=== PATIENT | male | born 1985 | race Caucasian/White ===

== ENCOUNTER 2024-08-05 09:56 | Outpatient (AMB) | payer BC, SELFPAY ==
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
[2024-08-05 10:19] VITALS: BP 120/70; PULSE 66; RESP 14; TEMP 36.8; O2SAT 98; BMI 25.3
--- OUTSIDE RECORDS SUMMARY | 2024-08-05 10:56 | XMS_ITS | Patient Health Record ---
Author Organization Shira , [facility] Address [address], [place] [id number] Care Team Providers Care Web Portal Developer Name Role Phone Negro Waldrop Primary Care Provider Jose Young Unavailable [phone] Reason For Referral No Information Medications Medication SIG (Take, Route, Fr equency, Duration) Notes Start Date End Date Status Adderall 20 MG 1 tab Orally twice a day for 30 days 11/24/2019 Active LaMICtal 200 MG 1 tablet Orally Once a day for 30 days Active Propranolol HCl 20 mg 1 tablet Orally Tw ice a day for 30 day(s) Active clonazePAM 1 MG 1 tablet Orally thre e times a day for 30 days Active Remeron 15 MG 1 tablet before bedt katherin in the evening Orally Once a day for 30 days Active Folic Acid 1 MG 1 tablet Orally Once a day for 30 Active Wellbutrin XL 300 MG 1 tablet in the mor kyle Orally Once a day for 30 days Active Adderall 20 MG 1 tablet Orally Twice a day Active Immunizations Vaccine Route Administration Date Status Comme nts Influenza , COMMERCIAL IM Intramuscular 04/08/2018 Adminis tered Social History Tobacco Use: Social History Observation Description Date Details (start date - stop date) Former Smoker NA - NA Sexual Hx: Question Answer Notes Had sex in the past 12 months (vaginal, oral, or anal) No Have you ever had an STD? No Alcohol Screen Question Answer Notes Did you have a drink contain ing alcohol in the past year? Yes How often did you have a dri nk containing alcohol in the past year? Monthly or less (1 point) How many drinks did you have on a typical day when you were drinking in the past year? 1 or 2 (0 points) How often did you have six o r more drinks on one occasion in the past year? Never (0 points) Points 1 Interpretation Negative smoking Question Answer Notes Are you a: former smoker Section Notes: PT VAPE'S VERY NITE. PT VAPes VERY NIght. PT VAPes VERY NIght. PT VAPes VERY NIght. PT VAPes VERY NIght. PT VAPes VERY NIght. PT VAPes VERY NIght. Problems Problem Type SNOMED Code ICD Code Onset Dates Problem Status W/U Status Risk Notes Problem Mixed anxiety and depressive disorder (570845838) Depression with anxiety (300.4) Active confirmed Problem Hypertension (02211564) HTN (hypertension) (I10) Active confirmed Problem Obstructive sleep apnea (05616733) Obstructive sleep apnea (G47.33) Active confirmed Problem Vitamin D deficiency (03242163) Vitamin D deficiency (E55.9) Active confirmed Plan Of Treatment Pending Test Test Name Order Date X-Ray ELBOW LEFT 06/26/2016 VENIPUNCT, ROUTINE* 12/04/2011 VENIPUNCT, ROUTINE* 02/22/2013 VENIPUNCT, ROUTINE* 03/22/2014 VENIPUNCT, ROUTINE* 06/21/2014 VENIPUNCT, ROUTINE* 06/27/2015 ECHO 03/18/2018 STRESS TEST(EKG) 03/18/2018 VENOUS UNILAERAL 06/26/2016 LIPID PANEL, STANDARD (7600) 11/24/2019 COMPREHENSIVE METABOLIC PANEL (95202) CBC (INCLUDES DIFF/PLT) (6399) 0 VITAMIN B12/FOLATE, SERUM PANEL (7065) 0 11/24/2019 TSH W/REFLEX TO FT4 (02910) 11/24/2019 VITAMIN D,25-OH,TOTAL,IA (24805) 020 SARS CoV 2 SEROLOGY (COVID 19) AB (IGG), IA (72498) 11/24/2019 Insurance Providers Payer Name Payer Address Payer Phone Subscriber Number Group Number Insured Name Patient Relationship to Insured Coverage Start Date Coverage End Date Mariam SWENSON [id number] [place], [place] [address] [phone] [id number] Luiz Retana Self - patient is the insured Medical (General) History Medical History History ICD Code depression Anxiety disorder HTN (hypertension) I10 Surgical History Surgery Date(Month/Year) right femoral fracture and Orif 1986 Hospitalization History Reason Date(Month/Year)
--- OUTSIDE RECORDS SUMMARY | 2024-08-05 10:56 | XMS_ITS | Clinical Summary ---
Author Organization [facility] Address [address] [place] [address] Care Team Providers Care Plastic Press Molder Name Role Phone Unavailable Primary Care Provider Unavailabl e Immunizations Immunization Administration Dates Next Due Pneumococcal Polysaccharide 23-Valent 08/22/2011 Tdap 08/22/2011 Social History Tobacco Use Types Packs/Day Years Used Date Smoking Tobacco: Never Assessed Sex and Gender Information Value Date Recorded Sex Assigned at Not on file Legal Sex Male 5:14 PM EDT Gender Identity Not on file Sexual Orientation Not on file Last Filed Vital Signs Vital Sign Reading Time Taken Comments Blood Pressure 110/68 08/22/2011 3:22 PM EDT Pulse 76 08/22/2011 3:22 PM EDT Temperature - - Respiratory Rate - - Oxygen Saturation - - Inhaled Oxygen Concentration - - Weight 77.1 kg (170 lb) 08/22/2011 3:22 PM EDT Height 193 cm (6' 4 ) 08/22/2011 3:22 PM EDT Body Mass Index 20.69 08/22/2011 3:22 PM EDT Plan of Treatment Health Maintenance Due Date Last Done Comments Hepatitis C Virus Screening 1985 HIV Screening 1998 Hepatitis B Vaccines (1 of 3 - 19+ 3-dose series) 2004 DTaP/Tdap/Td Vaccines (2 - T d or Tdap) 08/21/2021 08/22/2011 COVID-19 Vaccine (2023-2 5 season) 2023 Pneumococcal Vaccine: Pediat bib (0-5 Years) and At-Risk Patients (6 to 49 Years) Aged Out 08/22/2011 No longer eligible b ased on patient's age to complete this topic HPV Vaccines Aged Out No longer eligi ble based on patient's age to complete this topic
== END 2024-08-05 11:04 | disposition home or self-care (01) ==
LOC: HO.HMCFM 09:57
PROVIDERS: PCP Family Medicine; Visit Provider Family Medicine
DX: L70.9 Acne, unspecified (principal); F41.8 Other specified anxiety disorders; F43.12 Post-traumatic stress disorder, chronic; M21.70 Unequal limb length (acquired), unspecified site; R41.840 Attention and concentration deficit; L91.8 Other hypertrophic disorders of the skin; Z00.00 Encounter for general adult medical examination without abnormal findings

== ENCOUNTER → 2024-08-05 09:56 | Outpatient (BNVA) | payer BC, SELFPAY | PROVIDERS: PCP Family Medicine; Visit Provider Family Medicine | DX: L70.9 Acne, unspecified (principal); F41.8 Other specified anxiety disorders; F43.12 Post-traumatic stress disorder, chronic; M21.70 Unequal limb length (acquired), unspecified site; R41.840 Attention and concentration deficit; L91.8 Other hypertrophic disorders of the skin | CPT/HCPCS: 96127 ==

== ENCOUNTER 2024-11-25 08:10 | Outpatient (REF) | payer BC, SELFPAY ==
--- OUTSIDE RECORDS SUMMARY | 2024-11-25 08:18 | XMS_ITS | Clinical Summary ---
Author Organization [facility] Address [address] [place] [address] Care Team Providers Care Novelty Twister Tender Name Role Phone Unavailable Primary Care Provider [...] of 3 - 19+ 3-dose series) 2004 HPV Vaccines (1 - 3-dose SCD M series) 2012 DTaP/Tdap/Td Vaccines (2 - T d or Tdap) 08/21/2021 08/22/2011 COVID-19 Vaccine (2023-2 5 season) 2023 Pneumococcal Vaccine: Pediat bib (0-5 Years) and At-Risk Patients (6 to 49 Years) Aged Out 08/22/2011 No longer eligible b ased on patient's age to complete this topic
--- OUTSIDE RECORDS SUMMARY | 2024-11-25 08:18 | XMS_ITS | Patient Health Record ---
Author Organization Shira , [facility] Address [address], [place] [id number] Care Team Providers Care Flatwork Washer Name Role Phone Negro Waldrop Primary Care Provider [phone] Jose Young Unavailable [phone] Reason For Referral No Information Medications Medication SIG (Take, Route, Frequency, Duration) Notes Start Date End Date Status Adderall 20 MG Tablet 1 tab Orally twice a day; Duration: 30 days 11/24/2019 Active LaMICtal 200 MG Tablet 1 tablet Orally O nce a day; Duration: 30 days Active Propranolol HCl 20 mg Tablet 1 tablet Orally Twice a day; Duration: 30 day(s) Active clonazePAM 1 MG Tablet 1 tablet Orally t hree times a day; Duration: 30 days Active Remeron 15 MG Tablet 1 tablet before bed time in the evening Orally Once a day; Duration: 30 days Active Folic Acid 1 MG Tablet 1 tablet Orally O nce a day; Duration: 30 Active Wellbutrin XL 300 MG Tablet Extended Release 24 Hour 1 tablet in the morning Orally Once a day; Duration: 30 days Active Adderall 20 MG Tablet 1 tablet Orally Tw ice a day Active Immunizations Vaccine Route Administration Date Status Comme nts Influenza , COMMERCIAL IM Intramuscular 04/08/2018 Adminis tered Social History Tobacco Use: Social History Observation Description Date Details (start date - stop date) Former Smoker NA - NA Social History Sexual Hx: Social Info Question Answer Notes Sexual Hx: Had sex in the past 12 months (vaginal, o ral, or anal) No Have you ever had an STD? No Drug/Alcohol: Social Info Question Answer Notes Alcohol Screen Did you have a drink containing alcohol in the past year? Yes How often did you have a drink containing alcohol in the past year? Monthly or less (1 point) How many drinks did you have on a typical day when you were drinking in the past year? 1 or 2 (0 points) How often did you have six or more drinks on one occasion in the past year? Never (0 points) Points 1 Interpretation Negative Tobacco Use: Social Info Question Answer Notes smoking Are you a: former smoker Section Notes: PT VAPE'S VERY NITE. PT VAPes VERY NIght. PT VAPes VERY NIght. PT VAPes VERY NIght. PT VAPes VERY NIght. PT VAPes VERY NIght. PT VAPes VERY NIght. Problems Problem Type SNOMED Code ICD Code Onset Dates Problem Status W/U Status Risk Notes Problem Mixed anxiety and depressive disorder (747866935) Depression with anxiety (300.4) Active confirmed Problem Hypertension (63345693) HTN (hypertension) (I10) Active confirmed Problem Obstructive sleep apnea (G47.33) Active confirmed Problem Vitamin D deficiency (36540374) Vitamin D deficiency (E55.9) Active confirmed Plan Of Treatment Pending Test Test Name Order Date X-Ray ELBOW LEFT 06/26/2016 VENIPUNCT, ROUTINE* 12/04/2011 VENIPUNCT, ROUTINE* 02/22/2013 VENIPUNCT, ROUTINE* 03/22/2014 VENIPUNCT, ROUTINE* 06/21/2014 VENIPUNCT, ROUTINE* 06/27/2015 ECHO 03/18/2018 STRESS TEST(EKG) 03/18/2018 VENOUS UNILAERAL 06/26/2016 LIPID PANEL, STANDARD (7600) 11/24/2019 COMPREHENSIVE METABOLIC PANEL (40833) CBC (INCLUDES DIFF/PLT) (6399) 0 VITAMIN B12/FOLATE, SERUM PANEL (7065) 0 11/24/2019 TSH W/REFLEX TO FT4 (11597) 11/24/2019 VITAMIN D,25-OH,TOTAL,IA (02878) 020 SARS CoV 2 SEROLOGY (COVID 19) AB (IGG), [place] (83687) 11/24/2019 Insurance Providers Payer Name Payer Address Payer Phone Subscriber Number Group Number Insured Name Patient Relationship to Insured Coverage Start Date Coverage End Date Mariam Vaughan [id number] [place] [address] [phone] [id number] Luiz Retana Self - patient is the insured Medical (General) History Medical History History ICD Code depression Anxiety disorder HTN (hypertension) I10 Surgical History Surgery Date(Month/Year) right femoral fracture and Orif 1986 Hospitalization History Reason Date(Month/Year)
[2024-11-25 11:02] LABS: MANUAL DIFF FLAG NO
[2024-11-25 11:04] LABS: Hematocrit 39.5 % (42.0-52.0); Hemoglobin 13.8 g/dl (14.0-18.0); Imm Gran Abs Auto 0.01 X10*3/uL (0.00-0.03); Imm Gran Pct Auto 0.2 % (0.0-0.4); Lymphocytes Absolute Auto 1.1 X10*3/uL (1.2-4.9); Mean Corpuscular HGB Conc 34.9 g/dl (31.0-36.0); Mean Corpuscular Hemoglobin 32.2 pg (27.0-33.0); Mean Corpuscular Volume 92.3 fL (80.0-98.0); NRBC Abs Auto 0.000 X10*3/uL (0.0-0.012); NRBC Pct Auto 0.0 /100WBC (0.0-0.2); Platelet Count 235 X10*3/uL (160-400); Red Blood Count 4.28 X10*6/uL (4.60-5.80); White Blood Count 4.2 X10*3/uL (4.8-10.8)
[2024-11-25 11:11] LABS: Appearance Urine Clear; Glucose Urine UA Negative (Negative); PH 6.5 (5.0-9.0); Specific Gravity - Urine 1.020 (1.005-1.025)
[2024-11-25 11:48] LABS: Anion Gap 11 (12-20)
[2024-11-25 11:53] LABS: Alanine Aminotransferase 22 U/L (0-40); Albumin Level 4.4 g/dL (3.5-5.0); Alkaline Phosphatase 74 U/L (39-117); Aspartate Amino Transferase 20 U/L (5-37); Blood Urea Nitrogen 13 mg/dL (9-16); Calcium 9.0 mg/dL (8.4-10.2); Carbon Dioxide 27 mmol/L (22-29); Chloride 106 mmol/L (96-108); Cholesterol 198 mg/dL (<200); Estimated Glomerular Filt Rate > 60; HDL Cholesterol 57 mg/dL (>40); Potassium 4.3 mmol/L (3.3-5.1); Sodium 140 mmol/L (135-145); Total Protein 6.4 g/dL (6.5-8.0); Triglycerides 111 mg/dL (<150)
== END 2024-11-25 08:11 | disposition home or self-care (01) ==
LOC: HO.WFDLDS 08:10
PROVIDERS: Visit Provider Family Medicine
DX: Z00.00 Encounter for general adult medical examination without abnormal findings (principal); I10 Essential (primary) hypertension
CPT/HCPCS: 36415; 80053; 80061; 81003; 82043; 82570; 84443; 85025

== ENCOUNTER 2024-12-02 11:55 | Outpatient (AMB) | payer BC, SELFPAY ==
--- NOTE | 2024-12-02 12:00 | A.OFFPC_ITS ---
Vital Signs 12/02/24 12:09 Height 6 ft 5 in Weight 218 lb BMI 25.8 BP 123/79 Blood Pressure Location Lt brachial Position Sitting Respiration 16 Pulse 73 Pulse Source Pulse Oximeter Temp 97.9 F Temp Source Oral Pulse Oximetry (%) 98 Oxygen Delivery Method Room Air Intake Visit Reasons: CPE with f/u labs and health maint Intake Note: patient here for CPE with follow up labs and health maint Wireworker Supervisor Required: No Allergies No Known Allergies Allergy (Verified 12/02/24 12:07) Tobacco use date assessed: 12/02/24 Dental Screening Dental Screen Date: 12/02/24 Did you have a dental visit in the last 12 months?: Yes Did you have a dental problem in the last 6 months where you did not have access to dental care?: No Was dental information given to patient?: Patient has dentist HPI CPE with f/u labs and health maint HPI Details 39 y/o male presents for a CPE with f/u labs and health maint. Labs drawn 11/25/24. Reviewed labs with pt. Mild anemia. Fasting glucose 102. Triglycerides 111. TC 198. LDL 119. HDL 57. PHQ-9 4, PRESTON-7 6 today. Tries to eat a healthy diet and keeps himself active. Pt notes he had gotten a colonoscopy a couple years ago and they recommended a 2 year f/u. 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 1. Little interest or pleasure in doing things: more than half the days 2. Feeling down, depressed, or hopeless: several days 3. Trouble falling or staying asleep, or sleeping too much: not at all 4. Feeling tired or having little energy: not at all 5. Poor appetite or overeating: not at all 6. Feeling bad about yourself - or that you are a failure or have let yourself or your family down: several days 7. Trouble concentrating on things, such as reading the newspaper or watching television: not at all 8. Moving or speaking so slowly that other people could have noticed. Or the opposite - being so fidgety or restless that you have been moving around a lot more than usual: not at all 9. Thoughts that you would be better off or of hurting yourself in some way: not at all Total score: 4 Depression Screening Interpretation: Negative Depression Screening Done: Yes 13841 - PHQ-9 Billing: Yes Source: Developed by Drs. Mark Calderon, Enriqueta Linder, Lex Adorno and colleagues, with an educational tamica from [employer]. Thrive Questionnaire Date Thrive assessed: 12/02/24 I am a: Patient What is your living situation today?: I have a steady place to live Within the past 12 months, did the food you bought not last and you didn't have the money to get more?: Never true Within the past 12 months, did you worry whether your food would run out before you got money to buy more?: Never true Do you have trouble paying for medicines?: No Do you have trouble getting transportation to medical appointments?: No Do you have trouble paying your heating and electricity bill?: No Do you have trouble taking care of your child, family member or friend?: No Do you have trouble with day-to-day activities such as bathing, preparing meals, shopping, managing finances, etc.?: No Are you currently unemployed and looking for a job?: No Are you interested in more education?: Yes Please select the resources that you would like help with: Education Currently or been in a relationship where the following occur: No concerns reported THRIVE Score: 0 AUDIT C Alcohol Use Questionnaire (AUDIT-C) 1. How often do you have a drink containing alcohol?: 2-4 times a month 2. How many drinks containing alcohol do you have on a typical day when you are drinking?: 1 or 2 3. How often do you have six or more drinks on one occasion?: Never Total Score: 2 Score Reviewed/Action Taken: Yes PRESTON-7 AMB Questionnaire PRESTON-7 Date PRESTON - 7 assessed: 12/02/24 Feeling nervous, anxious, or on edge: 1 = Several days Not being able to stop or control worryin = Several days Worrying too much about different things: 1 = Several days Trouble relaxin = Several days Being so restless that it is hard to sit still: 1 = Several days Becoming easily annoyed or irritable: 0 = Not at all Feeling afraid as if something awful might happen: 1 = Several days Total PRESTON-7 score (0-4 normal; 5-9 mild; 10-14 moderate; 15-21 severe): 6 Source: Developed by Drs. Mark Calderon, Enriqueta Linder, Lex Adorno and colleagues, with an educational tamica from [employer]. PRESTON-7 Assessment Billing PRESTON-7 Assessment Tool: PRESTON-7 Assessment 78782 Review of Systems Const Denies chills, Denies fatigue, Denies fever(s), Denies headache(s) and Denies weakness Eyes Denies change in vision ENT Denies dizziness, Denies headache(s), Denies hearing loss, Denies nasal congestion, Denies sinus pain, Denies sinus pressure and Denies sore throat Card Denies chest pain, Denies lightheadedness, Denies dyspnea and Denies other (palpitations) Resp Denies cough, Denies dyspnea and Denies wheezing GI Denies abdominal pain, Denies melena, Denies hematochezia, Denies change in bowel habits, Denies dyspepsia and Denies nausea Denies hematuria and Denies dysuria Musc Denies abnormal gait, Denies myalgias, Denies arthralgias, Denies numbness and Denies tingling Skin/Breast Denies rash, Denies unusual bruising and Denies wounds Neuro Denies abnormal gait, Denies dizziness, Denies headache(s), Denies memory loss, Denies numbness, Denies Sensory deficit (Neuro), Denies tingling and Denies weakness Psych Denies anxiety, Denies depression and Denies memory loss Endo Denies cold intolerance, Denies fatigue, Denies heat intolerance, Denies polydipsia and Denies polyuria [place]ham/Lymph Denies easy bleeding and Denies easy bruising Aller/Immun Denies wheezing Physical exam (Primary Care) Vital Signs: Last Vital Signs Temp 97.9 F 12/02/24 12:09 Pulse 73 12/02/24 12:09 Resp 16 12/02/24 12:09 BP 123/79 12/02/24 12:09 Pulse Ox 98 12/02/24 12:09 Oxygen Delivery Method Room Air 12/02/24 12:09 BMI result Body Mass Index 25.8 Tobacco/Smoking Status: Tobacco use Status Tobacco use date assessed 12/02/24 12/02/24 12:15 Patient Tobacco Use Status Former Tobacco user 12/02/24 12:01 e-Cigarette/Vaping Use Currently Using 12/02/24 12:01 PHQ-9: PHQ-9 Score PHQ-9: Total score 4 12/02/24 12:15 Depression Screening Interpretation: Negative Thrive Assessment: Date of Thrive Assessment Date Thrive assessed 12/02/24 12/02/24 12:15 Currently or been in a relationship where the following occur: No concerns reported Const General: no acute distress, well developed, alert and awake Nutritional Appearance: well nourished Orientation/consciousness: patient oriented x3 HENMT Head: Yes normocephalic and Yes atraumatic Ears: hearing grossly normal bilaterally and TM's normal bilaterally General nose exam: Normal external nose present and Normal nares present Mouth: Normal oral and palatal mucosa present and moist mucous membranes Teeth and gingiva: dentition normal Throat: Yes posterior oropharynx normal Eyes General: appearance normal, both eyes and all related structures Pupils: Equal, round and reactive pupils present and Pupil accommodation reflex normal EOM: EOMs intact bilaterally Neck Neck: Yes normal visual inspection, Yes no lymphadenopathy and Yes trachea midline Thyroid: Thyroid normal Carotids: no bruits Lymphatic: no lymphadenopathy noted Chest Chest palpation & inspection: normal inspection of the chest Resp Effort & Inspection: normal respiratory effort Auscultation: clear to auscultation bilaterally Cardio Rate: regular rate Rhythm: regular rhythm Heart sounds: S1 normal heart sound present, S2 normal heart sound present, no gallops, no murmurs and no rubs Bruits: no abdominal aortic bruits and no carotid bruits GI Palpation (GI): No Abdominal aortic bruit present, Soft to palpation, nontender, No hepatosplenomegaly present and No Rebound tenderness present Auscultation: normal bowel sounds General: Yes no CVA tenderness Back/Spine/Pelvis Back: no CVA tenderness Cervical Spine: cervical ROM normal and No Cervical spine tenderness Thoracic/Lumbar Spine: thoraco-lumbar ROM normal, No pain with thoraco-lumbar ROM, No thoracic spinal tenderness and No lumbar spinal tenderness Skin Lesions: no lesions Rashes: no rashes Trauma: no lacerations or abrasions Wounds: no wounds Nails: normal Neuro General: patient oriented x3 Cranial nerves: Yes Equal, round and reactive pupils present Cognition (Neuro): normal cognition Gait exam (Neuro): Normal gait present Motor exam (neuro): 5/5 motor strength present throughout Sensory Exam: No Sensory deficit (Neuro) Deep tendon reflexes (DTR's): Right patellar reflex intensity grade: 2+ and Left patellar reflex intensity grade: 2+ Extrem General: Yes normal to inspection and No edema Psych Appearance: grossly normal Affect: normal affect Attitude: cooperative Thought process: Normal thought process present Coding Level of Care Code Est Pt Level 3 (25654) Est Pt Prev Care 18-39y(53811) Diagnoses Adult general medical examination Z00.00 Mild anemia D64.9 Depression with anxiety F41.8 Elevated fasting glucose R73.01 Skin tag L91.8 Screening for colon cancer Z12.11 Blood in stool K92.1 Additional Codes PRESTON-7 Assessment Billing - PRESTON-7 Assessment Tool: PRESTON-7 Assessment 93120 ([id number]) PHQ-9 - 54739 - PHQ-9 Billing: Yes ([id number]) Assessment & Plan Assessment & Plan (1) Adult general medical examination: Code(s): Z00.00 - Encounter for general adult medical examination without abnormal findings Category: Medical Plan: 39-year-old male presents for complete physical exam Encouraged healthy diet with active lifestyle and plenty of exercise (2) Mild anemia: Code(s): D64.9 - Anemia, unspecified Category: Medical Plan: Will monitor (3) Depression with anxiety: Code(s): F41.8 - Other specified anxiety disorders Category: Medical Plan: History of depression and anxiety treated with mirtazapine, sertraline and lamotrigine by his psychiatrist in [place] Had [place] [facility] [place] but he has not been contacted yet. His psychiatrist in [place] has been continue his medications but he is concerned he will run out at some point. Will ask for an expedited appointment as he was referred in August (4) Elevated fasting glucose: Code(s): R73.01 - Impaired fasting glucose Category: Medical Plan: Mildly elevated fasting blood sugar He notes that his father has diabetes Will recheck fasting blood sugar in a couple of months. Encouraged a diet lower in sugars and starches Will check A1c as well (5) Skin tag: Code(s): L91.8 - Other hypertrophic disorders of the skin Category: Medical Plan: Large, 3 cm skin tag at waistband region of his abdomen Referred to dermatology (6) Screening for colon cancer: Code(s): Z12.11 - Encounter for screening for malignant neoplasm of colon Category: Medical Plan: Patient notes that he has had colonoscopy in the past and it was recommended that he follow-up in 2 years Also notes some intermittent blood in stools (7) Blood in stool: Code(s): K92.1 - Melena Category: Medical Plan: Intermittent blood in stools As above refer to Gastroenterology Orders: Orders Complete Blood Count Auto Diff Today D64.9 - Anemia, unspecified, Z00.00 - Encounter for general adult medical examination without abnormal findings Hemoglobin A1c Today R73.01 - Impaired fasting glucose Comprehensive [place]. Panel Fast Today R73.01 - Impaired fasting glucose, Z00.00 - Encounter for general adult medical examination without abnormal findings Lipid Panel Today Z00.00 - Encounter for general adult medical examination without abnormal findings Referrals Dermatology Referral D48.5 - Neoplasm of uncertain behavior of skin, L70.9 - Acne, unspecified, L91.8 - Other hypertrophic disorders of the skin Gastroenterology Referral K64.9 - Unspecified hemorrhoids, K92.1 - Melena, Z12.11 - Encounter for screening for malignant neoplasm of colon
[2024-12-02 12:09] VITALS: BP 123/79; PULSE 73; RESP 16; TEMP 36.6; O2SAT 98; BMI 25.8
--- OUTSIDE RECORDS SUMMARY | 2024-12-02 12:48 | XMS_ITS | Clinical Summary ---
Author Organization [facility] Address [address] [place] [address] Care Team Providers Care Infantry Officer Name Role Phone Unavailable Primary Care Provider [...]
--- OUTSIDE RECORDS SUMMARY | 2024-12-02 12:48 | XMS_ITS | Patient Health Record ---
Author Organization [facility] , [facility] Address [address], [place] [id number] Care Team Providers Care Automobile Mechanic Name Role Phone Negro Waldrop Primary Care Provider Jose Young Unavailable [phone] Reason For Referral No Information Medications Medication [...] Notes Problem Mixed anxiety and depressive disorder (781767284) Depression with anxiety (300.4) Active confirmed Problem Hypertension (02630721) HTN (hypertension) (I10) Active confirmed Problem Obstructive sleep apnea (99566598) Obstructive sleep apnea (G47.33) Active confirmed Problem Vitamin D deficiency (30322842) Vitamin D deficiency (E55.9) Active confirmed Plan Of Treatment Pending Test Test Name Order Date X-Ray ELBOW LEFT 06/26/2016 VENIPUNCT, ROUTINE* 12/04/2011 VENIPUNCT, ROUTINE* 02/22/2013 VENIPUNCT, ROUTINE* 03/22/2014 VENIPUNCT, ROUTINE* 06/21/2014 VENIPUNCT, ROUTINE* 06/27/2015 ECHO 03/18/2018 STRESS TEST(EKG) 03/18/2018 VENOUS UNILAERAL 06/26/2016 LIPID PANEL, STANDARD (7600) 11/24/2019 COMPREHENSIVE METABOLIC PANEL (61662) CBC (INCLUDES DIFF/PLT) (6399) 0 VITAMIN B12/FOLATE, SERUM PANEL (7065) 0 11/24/2019 TSH W/REFLEX TO FT4 (37169) 11/24/2019 VITAMIN D,25-OH,TOTAL,IA (81952) 020 SARS CoV 2 SEROLOGY (COVID 19) AB (IGG), [place] (61899) 11/24/2019 Insurance Providers Payer Name Payer Address Payer Phone Subscriber Number Group Number Insured Name Patient Relationship to Insured Coverage Start Date Coverage End Date Mariam Richards [id number] [place] [address] [id number] Luiz Retana Self - patient is the insured Medical (General) History Medical History History ICD Code depression Anxiety disorder HTN (hypertension) I10 Surgical History Surgery Date(Month/Year) right femoral fracture and Orif 1986 Hospitalization History Reason Date(Month/Year)
== END 2024-12-02 13:04 | disposition home or self-care (01) ==
LOC: HO.HMCFM 11:56
PROVIDERS: PCP Family Medicine; Visit Provider Family Medicine
DX: Z00.00 Encounter for general adult medical examination without abnormal findings (principal); D64.9 Anemia, unspecified; F41.8 Other specified anxiety disorders; R73.01 Impaired fasting glucose; L91.8 Other hypertrophic disorders of the skin; Z12.11 Encounter for screening for malignant neoplasm of colon; K92.1 Melena

== ENCOUNTER → 2024-12-02 11:55 | Outpatient (BNVA) | payer BC, SELFPAY | PROVIDERS: PCP Family Medicine; Visit Provider Family Medicine | DX: Z00.00 Encounter for general adult medical examination without abnormal findings (principal); D64.9 Anemia, unspecified; F41.8 Other specified anxiety disorders; R73.01 Impaired fasting glucose; L91.8 Other hypertrophic disorders of the skin; K92.1 Melena; D48.5 Neoplasm of uncertain behavior of skin; L70.9 Acne, unspecified; K64.9 Unspecified hemorrhoids | CPT/HCPCS: 96127 ==

== ENCOUNTER 2025-01-31 08:23 | Outpatient (REF) | payer BC, SELFPAY ==
[2025-01-31 11:27] LABS: MANUAL DIFF FLAG NO
[2025-01-31 11:42] LABS: Hematocrit 30.6 % (42.0-52.0); Imm Gran Abs Auto 0.01 X10*3/uL (0.00-0.03); Imm Gran Pct Auto 0.2 % (0.0-0.4); Lymphocytes Absolute Auto 1.0 X10*3/uL (1.2-4.9); Mean Corpuscular HGB Conc 32.7 g/dl (31.0-36.0); Mean Corpuscular Hemoglobin 28.2 pg (27.0-33.0); Mean Corpuscular Volume 86.2 fL (80.0-98.0); NRBC Abs Auto 0.000 X10*3/uL (0.0-0.012); NRBC Pct Auto 0.0 /100WBC (0.0-0.2); Platelet Count 264 X10*3/uL (160-400); Red Blood Count 3.55 X10*6/uL (4.60-5.80); White Blood Count 4.8 X10*3/uL (4.8-10.8)
[2025-01-31 11:45] LABS: Hemoglobin 10.0 g/dl (14.0-18.0)
[2025-01-31 11:56] LABS: Alanine Aminotransferase 18 U/L (0-40); Albumin Level 4.5 g/dL (3.5-5.0); Alkaline Phosphatase 62 U/L (39-117); Anion Gap 10 (12-20); Aspartate Amino Transferase 16 U/L (5-37); Blood Urea Nitrogen 8 mg/dL (9-16); Calcium 9.0 mg/dL (8.4-10.2); Carbon Dioxide 28 mmol/L (22-29); Chloride 107 mmol/L (96-108); Cholesterol 156 mg/dL (<200); Estimated Glomerular Filt Rate > 60; HDL Cholesterol 41 mg/dL (>40); Potassium 3.9 mmol/L (3.3-5.1); Sodium 141 mmol/L (135-145); Total Protein 6.6 g/dL (6.5-8.0); Triglycerides 78 mg/dL (<150)
== END 2025-01-31 08:24 | disposition home or self-care (01) ==
LOC: HO.WFDLDS 08:23
PROVIDERS: Visit Provider Family Medicine
DX: Z00.00 Encounter for general adult medical examination without abnormal findings (principal); Z13.6 Encounter for screening for cardiovascular disorders; D64.9 Anemia, unspecified; R73.01 Impaired fasting glucose
CPT/HCPCS: 36415; 80053; 80061; 83036; 85025

== ENCOUNTER 2025-02-01 11:44 | Outpatient (AMB) | payer BC, SELFPAY ==
--- NOTE | 2025-02-01 11:48 | MHC.PC.OV ---
Vital Signs 02/01/25 11:52 Height 6 ft 5 in Weight 217 lb 6 oz BMI 25.8 BP 100/68 Blood Pressure Location Rt brachial Position Sitting Respiration 15 Pulse 70 Pulse Source Pulse Oximeter Temp 97.7 F Temp Source Temporal Artery Scan Pulse Oximetry (%) 98 Oxygen Delivery Method Room Air Intake Visit Reasons: f/u labs Intake Note: Luiz presents in the office today to go over his most recent lab results. Allergies No Known Allergies Allergy (Verified 02/01/25 11:50) Tobacco use date assessed: 02/01/25 Dental Screening Dental Screen Date: 02/01/25 Did you have a dental visit in the last 12 months?: Yes Did you have a dental problem in the last 6 months where you did not have access to dental care?: No Was dental information given to patient?: Patient has dentist HPI f/u labs HPI Details 39 y/o male presents to f/u labs. Labs drawn 01/31/25. Reviewed labs with pt. Ongoing anemia, worsened since last visit in November. A1c 5.1%. Triglycerides 78. TC 156. LDL 100. HDL 41. Hx of hemorrhoids, blood in stool. He has a scheduled appt. with GI. Has complaints of an abd. lump. HPI Comments History of Present Illness Details Documentation assistance for Luis Larson MD, was provided by Sharath Giron,[facility] Urologic Surgeon on 01/31/2025 at 12:17 PM EST. I, Dr. Larson, have read, observed, and verified documentation. ?? 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 Current occupational exposures/hazards: No Cognitive needs: No Hearing needs: No Vision needs: Yes Questionnaire Thrive Questionnaire Date Thrive assessed: 08/04/24 I am a: Patient What is your living situation today?: I have a steady place to live Within the past 12 months, did the food you bought not last and you didn't have the money to get more?: Never true Within the past 12 months, did you worry whether your food would run out before you got money to buy more?: Never true Do you have trouble paying for medicines?: No Do you have trouble getting transportation to medical appointments?: No Do you have trouble paying your heating and electricity bill?: No Do you have trouble taking care of your child, family member or friend?: No Do you have trouble with day-to-day activities such as bathing, preparing meals, shopping, managing finances, etc.?: No Are you currently unemployed and looking for a job?: I choose not to answer this question Are you interested in more education?: I choose not to answer this question THRIVE Score: 0 PRESTON-7 AMB Questionnaire PRESTON-7 Date PRESTON - 7 assessed: 12/02/24 Source: Developed by Drs. Mark Calderon, Enriqueta Linder, Lex Adorno and colleagues, with an educational tamica from [employer]. Review of Systems Const Denies chills, Denies fatigue, Denies fever(s), Denies headache(s) and Denies weakness ENT Denies dizziness and Denies headache(s) Card Denies dyspnea Resp Denies cough, Denies dyspnea, Denies wheezing and Denies other (shortness of breath) Musc Denies numbness and Denies tingling Neuro Denies dizziness, Denies headache(s), Denies numbness, Denies tingling and Denies weakness Psych Denies anxiety and Denies depression Endo Denies fatigue Aller/Immun Denies wheezing Physical exam (Primary Care) Vital Signs: Last Vital Signs Temp 97.7 F 02/01/25 11:52 Pulse 70 02/01/25 11:52 Resp 15 02/01/25 11:52 BP 100/68 02/01/25 11:52 Pulse Ox 98 02/01/25 11:52 Oxygen Delivery Method Room Air 02/01/25 11:52 BMI result Body Mass Index 25.8 Tobacco/Smoking Status: Tobacco use Status Tobacco use date assessed 02/01/25 02/01/25 11:54 Patient Tobacco Use Status Former Tobacco user 02/01/25 11:52 e-Cigarette/Vaping Use Currently Using 02/01/25 11:52 Thrive Assessment: Date of Thrive Assessment Date Thrive assessed 08/04/24 02/01/25 11:49 Const General: well developed; No acute distress Nutritional Appearance: well nourished Orientation/consciousness: patient oriented x3 HENMT Head: Yes normocephalic and Yes atraumatic Eyes General: appearance normal, both eyes and all related structures Pupils: Equal, round and reactive pupils present EOM: EOMs intact bilaterally Resp Effort & Inspection: normal respiratory effort Neuro General: patient oriented x3 and gait normal Cranial nerves: Yes Equal, round and reactive pupils present Psych Affect: normal affect Coding Level of Care Code Est Pt Level 4 (74844) Diagnoses Anemia D64.9 Elevated fasting glucose R73.01 Hemorrhoids K64.9 Blood in stool K92.1 Abdominal lump R19.00 Assessment & Plan Assessment & Plan (1) Anemia: Code(s): D64.9 - Anemia, unspecified Category: Medical Plan: Worsened anemia and patient has ongoing mild blood in stools Keep stools soft and hydrate well. Will send script for MiraLax Increase iron rich foods Will recheck CBC and iron studies prior to upcoming visit; may need iron supplementation but avoiding this for now He has an appointment with Gastroenterology. If anemia continues to worsen, will ask for a sooner appointment (2) Elevated fasting glucose: Code(s): R73.01 - Impaired fasting glucose Category: Medical Plan: A1c 5.1% is in normal range. Encouraged a diet lower in sugars and starches Will continue to monitor (3) Hemorrhoids: Code(s): K64.9 - Unspecified hemorrhoids Category: Medical (4) Blood in stool: Code(s): K92.1 - Melena Category: Medical (5) Abdominal lump: Code(s): R19.00 - Intra-abdominal and pelvic swelling, mass and lump, unspecified site Category: Medical Plan Ventral lump superior to umbilicus No significant impulse on cough/Valsalva Will check ultrasound hernia versus diastasis of rectus muscle versus lipoma or other mass Orders: Orders Basic Metabolic Panel Today D64.9 - Anemia, unspecified, Z00.00 - Encounter for general adult medical examination without abnormal findings IRON PROFILE Today D64.9 - Anemia, unspecified Reticulocyte Count Today D64.9 - Anemia, unspecified US abdomen limited Today R19.00 - Intra-abdominal and pelvic swelling, mass and lump, unspecified site Complete Blood Count Auto Diff Today D64.9 - Anemia, unspecified, Z00.00 - Encounter for general adult medical examination without abnormal findings Medications: New polyethylene glycol 3350 (Miralax) 17 grams PO DAILY 14 ea 0RF 14 days
[2025-02-01 11:52] VITALS: BP 100/68; PULSE 70; RESP 15; TEMP 36.5; O2SAT 98; BMI 25.8
--- OUTSIDE RECORDS SUMMARY | 2025-02-01 15:07 | XMS_ITS | Clinical Summary ---
Author Organization [facility] Address [address] [place] [address] Care Team Providers Care Human Resources Benefits Administrator Name Role Phone Unavailable Primary Care Provider [...] 08/21/2021 08/22/2011 COVID-19 Vaccine (2023-2 5 season) 2024 Pneumococcal Vaccine: Pediat bib (0-5 Years) and At-Risk Patients (6 to 49 Years) Aged Out 08/22/2011 No longer eligible b ased on patient's age to complete this topic HPV Vaccines (No Doses Required) Completed
--- OUTSIDE RECORDS SUMMARY | 2025-02-01 15:07 | XMS_ITS | Patient Health Record ---
Author Organization [facility] , [facility] Address [address] [place], [place] [id number] Care Team Providers Care Boiler Plant Operator Name Role Phone Negro Waldrop Primary Care Provider [phone] Jose Young Unavailable [phone] Reason For Referral No Information Medications Medication [...] Notes Problem Mixed anxiety and depressive disorder (313532792) Depression with anxiety (300.4) Active confirmed Problem Hypertension (42818618) HTN (hypertension) (I10) Active confirmed Problem Obstructive sleep apnea (80689553) Obstructive sleep apnea (G47.33) Active confirmed Problem Vitamin D deficiency (68004475) Vitamin D deficiency (E55.9) Active confirmed Plan Of Treatment Pending Test Test Name Order Date X-Ray ELBOW LEFT 06/26/2016 VENIPUNCT, ROUTINE* 12/04/2011 VENIPUNCT, ROUTINE* 02/22/2013 VENIPUNCT, ROUTINE* 03/22/2014 VENIPUNCT, ROUTINE* 06/21/2014 VENIPUNCT, ROUTINE* 06/27/2015 ECHO 03/18/2018 STRESS TEST(EKG) 03/18/2018 VENOUS UNILAERAL 06/26/2016 LIPID PANEL, STANDARD (7600) 11/24/2019 COMPREHENSIVE METABOLIC PANEL (31776) CBC (INCLUDES DIFF/PLT) (6399) 0 VITAMIN B12/FOLATE, SERUM PANEL (7065) 0 11/24/2019 TSH W/REFLEX TO FT4 (57487) 11/24/2019 VITAMIN D,25-OH,TOTAL,IA (06201) 020 SARS CoV 2 SEROLOGY (COVID 19) AB (IGG), [place] (39716) 11/24/2019 Insurance Providers Payer Name Payer Address Payer Phone Subscriber Number Group Number Insured Name Patient Relationship to Insured Coverage Start Date Coverage End Date Mariam Richards [id number] [place] [address] [id number] Luiz Retana Self - patient is the insured Medical (General) History Medical History History ICD Code depression Anxiety disorder HTN (hypertension) I10 Surgical History Surgery Date(Month/Year) right femoral fracture and Orif 1986 Hospitalization History Reason Date(Month/Year)
== END 2025-02-01 12:21 | disposition home or self-care (01) ==
LOC: HO.HMCFM 11:44
PROVIDERS: PCP Family Medicine; Visit Provider Family Medicine
DX: D64.9 Anemia, unspecified (principal); R73.01 Impaired fasting glucose; K64.9 Unspecified hemorrhoids; K92.1 Melena; R19.00 Intra-abdominal and pelvic swelling, mass and lump, unspecified site

== ENCOUNTER 2025-02-02 13:08 | Outpatient (AMB) | payer BC, SELFPAY ==
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
--- OUTSIDE RECORDS SUMMARY | 2025-02-02 16:03 | XMS_ITS | Patient Health Record ---
Author Organization [facility] Address [address], [place] [id number] Care Team Providers Care Hand Potter Name Role Phone Negro Waldrop Primary Care Provider [phone] Jose Young Unavailable [phone] Reason For Referral No Information Medications Medication [...] Notes Problem Mixed anxiety and depressive disorder (600212882) Depression with anxiety (300.4) Active confirmed Problem Hypertension (10293248) HTN (hypertension) (I10) Active confirmed Problem Obstructive sleep apnea (20515264) Obstructive sleep apnea (G47.33) Active confirmed Problem Vitamin D deficiency (11457969) Vitamin D deficiency (E55.9) Active confirmed Plan Of Treatment Pending Test Test Name Order Date X-Ray ELBOW LEFT 06/26/2016 VENIPUNCT, ROUTINE* 12/04/2011 VENIPUNCT, ROUTINE* 02/22/2013 VENIPUNCT, ROUTINE* 03/22/2014 VENIPUNCT, ROUTINE* 06/21/2014 VENIPUNCT, ROUTINE* 06/27/2015 ECHO 03/18/2018 STRESS TEST(EKG) 03/18/2018 VENOUS UNILAERAL 06/26/2016 LIPID PANEL, STANDARD (7600) 11/24/2019 COMPREHENSIVE METABOLIC PANEL (68624) CBC (INCLUDES DIFF/PLT) (6399) 0 VITAMIN B12/FOLATE, SERUM PANEL (7065) 0 11/24/2019 TSH W/REFLEX TO FT4 (48934) 11/24/2019 VITAMIN D,25-[place],TOTAL,IA (79624) 020 SARS CoV 2 SEROLOGY (COVID 19) AB (IG[place]), [place] (19603) 11/24/2019 Insurance Providers Payer Name Payer Address Payer Phone Subscriber Number Group Number Insured Name Patient Relationship to Insured Coverage Start Date Coverage End Date Mariam Richards [id number] [place] [address] [id number] Luiz Retana Self - patient is the insured Medical (General) History Medical History History ICD Code depression Anxiety disorder HTN (hypertension) I10 Surgical History Surgery Date(Month/Year) right femoral fracture and Orif 1986 Hospitalization History Reason Date(Month/Year)
--- OUTSIDE RECORDS SUMMARY | 2025-02-02 16:03 | XMS_ITS | Clinical Summary ---
Author Organization [facility] Address [address] [place] [address] Care Team Providers Care Degreasing Solution Reclaimer Name Role Phone Unavailable Primary Care Provider [...]
== END 2025-02-02 14:16 | disposition home or self-care (01) ==
LOC: HO.HOP 13:08
PROVIDERS: PCP Family Medicine; Visit Provider Clinical Nurse Specialist Psychiatric/Mental Health
DX: F43.12 Post-traumatic stress disorder, chronic (principal); F33.41 Major depressive disorder, recurrent, in partial remission; F41.1 Generalized anxiety disorder; F41.0 Panic disorder [episodic paroxysmal anxiety]; F90.2 Attention-deficit hyperactivity disorder, combined type
CPT/HCPCS: 90792

== ENCOUNTER → 2025-02-02 13:08 | Outpatient (BNVA) | payer BC, SELFPAY | PROVIDERS: PCP Family Medicine; Visit Provider Clinical Nurse Specialist Psychiatric/Mental Health | DX: F43.12 Post-traumatic stress disorder, chronic (principal); F33.41 Major depressive disorder, recurrent, in partial remission; F41.1 Generalized anxiety disorder; F41.0 Panic disorder [episodic paroxysmal anxiety]; F90.2 Attention-deficit hyperactivity disorder, combined type | CPT/HCPCS: 90792 ==